=== PATIENT | female | born 1975 | race Caucasian/White ===

== ENCOUNTER 2018-01-10 12:23 | Emergency (ER) | payer OTHER ==
[~2018-01-10] VITALS: Ht 170.1 cm; Wt 99.8 kg
[~2018-01-10 12:23] MED LIST: BACTRIM DS 8001 TA1 PO; BACTROBAN CREAM15 GM PO; VICODIN ES 7501 TAB PO
[2018-01-10 12:29] VITALS: BP 132/69
== END 2018-01-10 14:35 | disposition home or self-care (01) ==
LOC: ED 12:23
DX: L23.7 Allergic contact dermatitis due to plants, except food (principal); Z98.890 Other specified postprocedural states

== ENCOUNTER 2021-03-07 17:42 | Emergency (ER) | payer OTHER ==
[~2021-03-07] VITALS: Ht 170.1 cm; Wt 250.4 kg
[~2021-03-07 17:42] MED LIST changes: +AUGMENTIN 875875 MG PO; +DICYCLOMINE HCL20 MG PO; +FLONASE ALLERG9.9 ML NAS
[2021-03-07 19:16] VITALS: BP 136/83
[2021-03-07 21:31] LABS: BASO # 0.1 10*3/uL (0.0-0.1); BASO % 0.4 % (0.0-1.0); EOS # 0.1 10*3/uL (0.0-0.4); EOS % 0.4 % (1.0-4.0); HEMATOCRIT 31.9 % (37.0-47.0); LYMPH # 3.1 10*3/uL (1.3-4.4); LYMPH % 22.3 % (27.0-41.0); MEAN CORPUSCULAR HGB 19.6 pg (27.0-31.0); MEAN CORPUSCULAR HGB CONC 28.8 g/dl (33.0-37.0); MONO % 7.2 % (3.0-9.0); NEUT # 9.7 10*3/uL (2.3-7.9); NEUT % 69.3 % (47.0-73.0); PLATELET COUNT AUTOMATED 367 10*3/uL (130-400); RED BLOOD COUNT 4.69 10*6/uL (4.10-5.10); RED CELL DISTRI WIDTH 20.6 % (0-14.5)
[2021-03-07 21:47] LABS: ALBUMIN 3.7 gm/dl (3.1-4.5); ALKALINE PHOSPHATASE 122 U/L (45-117); BUN 11 mg/dl (7-24); CHLORIDE 104 mmol/L (98-107); CREATININE 0.52 mg/dL (0.55-1.02); LIPASE 163 U/L (73-393); POTASSIUM 3.4 mmol/L (3.5-5.1); SGOT/AST 16 IU/L (3-35); SGPT/ALT 27 U/L (12-78); SODIUM 138 mmol/L (136-145); TOTAL PROTEIN 7.7 gm/dL (6.4-8.2)
[2021-03-07 21:50] LABS: B-hCG (QUALITATIVE) NEGATIVE (NEGATIVE)
[2021-03-08] MEDS ORDERED: OMEPRAZOLE20 M2 PO (00:33)
[2021-03-08] MEDS ORDERED: PEPCID20 MG PO (00:33)
== END 2021-03-08 01:14 | disposition home or self-care (01) ==
LOC: ED 17:42
PROVIDERS: Physician Assistant
DX: R10.13 Epigastric pain (principal); R11.2 Nausea with vomiting, unspecified; R19.7 Diarrhea, unspecified; Z98.84 Bariatric surgery status; Z90.49 Acquired absence of other specified parts of digestive tract; Z98.890 Other specified postprocedural states

== ENCOUNTER → 2021-04-02 | Outpatient (CLI) | payer OTHER ==
[~2021-04-02] MED LIST changes: +OMEPRAZOLE20 M2 PO; +PEPCID20 MG PO
== END | disposition home or self-care (01) ==
LOC: COVID19 15:23
PROVIDERS: ATTEND Internal Medicine
DX: U07.1 COVID-19 (principal)